=== PATIENT | female | born 1955 | race Caucasian/White ===

== ENCOUNTER → 2018-12-04 | Outpatient (CLI) | payer BC ==
[~2018-12-04] MED LIST: FLUTICASONE P15.8 ML NAS; LISINOPRIL-HCTZ 10-1 PO; PRILOSEC20 M1 PO; PROVENTIL HFA6.7 GM INH; SYMB160 INH; ZESTORETIC 10-1 EACH PO; ZITHROMAX500 MG PO
[2018-12-06 09:06] LABS: ALPHA-1-ANTITRYPSIN, SERUM 148 mg/dL (90-200)
== END | disposition home or self-care (01) ==
LOC: LAB 08:37
PROVIDERS: Internal Medicine Critical Care Medicine
DX: J44.9 Chronic obstructive pulmonary disease, unspecified (principal)

== ENCOUNTER → 2019-06-10 | Day surgery (SDC) | payer BC, MEDICARE ==
[~2019-06-10] VITALS: Ht 157.4 cm; Wt 86.2 kg
[~2019-06-10] MED LIST changes: +LISINOPRIL5 MG PO
[2019-06-10 07:20] VITALS: BP 172/69
[2019-06-10 09:20] VITALS: BP 165/75
[2019-06-10 09:35] VITALS: BP 159/69
[2019-06-10 12:02] LABS: BF LYMPHOCYTES 8 %; BF MACROPHAGES 14 %; BF MONOCYTES 1 %; BF NEUTROPHILS 73 %
[2019-06-11 16:08] LABS: ACID FAST SPEC PROCESSING Concentration (.)
== END | disposition home or self-care (01) ==
LOC: SDC 06-08 11:00
PROVIDERS: Internal Medicine Critical Care Medicine
DX: R91.1 Solitary pulmonary nodule (principal); I10 Essential (primary) hypertension; J44.9 Chronic obstructive pulmonary disease, unspecified; R05 Cough; Z98.890 Other specified postprocedural states

== ENCOUNTER 2020-09-25 17:00 | Emergency (ER) | payer MEDICARE, OTHER ==
[2020-09-25 17:56] VITALS: BP 180/87
== END 2020-09-25 20:07 | disposition home or self-care (01) ==
LOC: ED 17:00
DX: S20.219A Contusion of unspecified front wall of thorax, initial encounter (principal); S80.02XA Contusion of left knee, initial encounter; S80.01XA Contusion of right knee, initial encounter; S16.1XXA Strain of muscle, fascia and tendon at neck level, initial encounter; Z90.49 Acquired absence of other specified parts of digestive tract; W19.XXXA Unspecified fall, initial encounter; Y93.89 Activity, other specified; Y92.89 Other specified places as the place of occurrence of the external cause; Y99.8 Other external cause status

== ENCOUNTER 2022-12-22 12:52 | Emergency (ER) | payer MEDICARE, OTHER ==
[~2022-12-22] VITALS: Ht 157.4 cm; Wt 81.6 kg
[2022-12-22 13:30] VITALS: BP 153/63
[2022-12-22] MEDS ORDERED: MELOXICAM15 MG PO (16:50)
[2022-12-22] MEDS ORDERED: CYCLOBENZAPRINE5 M3 PO (16:50)
== END 2022-12-22 17:12 | disposition home or self-care (01) ==
LOC: ED 12:52
DX: M70.72 Other bursitis of hip, left hip (principal); J44.9 Chronic obstructive pulmonary disease, unspecified; I10 Essential (primary) hypertension; Z88.2 Allergy status to sulfonamides; Z88.8 Allergy status to other drugs, medicaments and biological substances; Z90.49 Acquired absence of other specified parts of digestive tract; Z98.890 Other specified postprocedural states; Z90.12 Acquired absence of left breast and nipple; Z87.891 Personal history of nicotine dependence

== ENCOUNTER → 2024-01-15 | Day surgery (SDC) | payer MEDICARE, OTHER ==
[~2024-01-15] VITALS: Ht 157.4 cm; Wt 79.4 kg
[~2024-01-15] MED LIST changes: +ASPIRIN FOR CHI81 MG PO; +Albuterol Sulf/Ipratropium 3 ML VIAL NEB ONE; +Albuterol Sulfate 2.5 MG/0.5 ML VIAL NEB ONE; +CYCLOBENZAPRINE5 M3 PO; +LIPITOR40 MG PO; +Lactated Ringer's Solution 1,000 ML IV ONE; +Lactated Ringer's Solution 1,000 ML IV SCH; +Lidocaine Hydrochloride 4% 5 ML AMP NEB ONE; +Lidocaine Hydrochloride 4% 5 ML AMP ONE; +MELOXICAM15 MG PO; +PEPCID AC20 MG PO; +PROPOFOL 200 MG/20 ML VIAL IV ONE
[2024-01-15 08:30] VITALS: BP 108/69
[2024-01-15 09:55] VITALS: BP 118/55
[2024-01-15 10:10] VITALS: BP 128/51
[2024-01-15 10:25] VITALS: BP 148/63
[2024-01-15 10:51] VITALS: BP 118/55
[2024-01-16 14:09] LABS: ACID FAST SPEC PROCESSING Concentration (.)
== END | disposition home or self-care (01) ==
LOC: SDC 01-09 11:45
PROVIDERS: ATTEND Internal Medicine Critical Care Medicine
DX: R05.9 Cough, unspecified (principal); J44.9 Chronic obstructive pulmonary disease, unspecified; I10 Essential (primary) hypertension; K21.9 Gastro-esophageal reflux disease without esophagitis; Z87.891 Personal history of nicotine dependence; Z90.89 Acquired absence of other organs; Z90.49 Acquired absence of other specified parts of digestive tract; Z98.890 Other specified postprocedural states; Z79.899 Other long term (current) drug therapy